=== PATIENT | female | born 1935 | race Caucasian/White ===

== ENCOUNTER 2018-09-13 22:03 | Emergency (ER) | payer MEDICARE ==
[2018-09-13] MEDS ORDERED: LIDOCAINE 1% INJ 10MG/ML (20 ML MDV) SQ ONE (23:52)
--- NOTE | 2018-09-14 00:39 | ED ---
General Adult HPI - General Chief complaint: Wound/Laceration Stated complaint: Fall, [place] Time Seen by Provider: 09/13/18 22:56 Source: patient Mode of arrival: ambulatory Limitations: no limitations - History of Present Illness Initial comments: Patient is an 82-year-old female presented to emergency department with a laceration on chin. Patient reports running when she tripped and fell forward causing a laceration on the mandible. Patient denies loss of consciousness at time of incident. Patient denies any fractured teeth. patient denies any numbness tingling or difficulty or pain closing the jaw. Patient denies nausea, vomiting, lightheadedness, chest pain, shortness of breath. Patient states her tetanus status is up-to-date. Patient denies taking any medication to lower the pain. - Related Data Home Medications Medication Instructions Recorded Confirmed No Known Home Medications 12/16/13 12/16/13 Allergies Allergy/AdvReac Type Severity Reaction Status Date / Time shellfish derived Allergy Rash/Hives Verified 09/13/18 22:12 Review of Systems ROS Statement: Those systems with pertinent positive or pertinent negative responses have been documented in the HPI. ROS Other: All systems not noted in ROS Statement are negative. Past Medical History Past Medical History: No Reported History History of Any Multi-Drug Resistant Organisms: None Reported Past Surgical History: Bowel Resection, Section, Tonsillectomy Past Psychological History: No Psychological Hx Reported Smoking Status: Never smoker Past Alcohol Use History: Occasional Past Drug Use History: None Reported General Exam Limitations: no limitations General appearance: alert, in no apparent distress Head exam: Present: normocephalic, normal inspection. Absent: atraumatic (1 cm laceration on the mental.) Eye exam: Present: normal appearance, PERRL, EOMI Pupils: Present: normal accommodation ENT exam: Present: normal exam, normal oropharynx (No teeth fractures) Neck exam: Present: normal inspection Respiratory exam: Present: normal lung sounds bilaterally Cardiovascular Exam: Present: regular rate, normal rhythm, normal heart sounds Extremities exam: Present: normal inspection, full ROM Back exam: Present: normal inspection, full ROM Neurological exam: Present: alert, oriented X3 Psychiatric exam: Present: normal affect, normal mood Skin exam: Present: warm, intact, normal color Course Vital Signs 09/13/18 22:09 Temperature 98.7 F Pulse Rate 80 Respiratory 18 Rate Blood Pressure 136/86 O2 Sat by Pulse 98 Oximetry Procedures - Laceration Laceration #1 Consent Obtained: verbal consent Indication: laceration Site: face Size (cm): 1 Description: linear Depth: simple, single layer Anesthetic Used: lidocaine 1% Anesthesia Technique: local infiltration Amount (mls): 10 Size of Sutures: 5-0 Number of Sutures: 3 Technique: simple, interrupted Patient Tolerated Procedure: well Medical Decision Making - Medical Decision Making Patient is a 83-year-old female presenting to emergency department with a laceration to the mental. I repaired the laceration with 3 sutures. Patient tolerated procedure well. Patient advised to follow-up with primary care. Patient advised to return to emergency department for suture removal in 3-5 days. Patient also advised to come sooner if symptoms worsen. Case discussed with physician. Disposition Clinical Impression: Laceration Disposition: HOME SELF-CARE Condition: Stable Instructions (If sedation given, give patient instructions): Laceration (DC) Additional Instructions: Please return to emergency department for suture removal in 3-5 days. Please follow with primary care. Is patient prescribed a controlled substance at d/c from ED?: No Referrals: Joesph Olsen MD [Primary Care Provider] - 1-2 days Time of Disposition: 00:38
[2018-09-14 00:53] VITALS: BP 141/93; PULSE 70; RESP 17; TEMP 98.4
== END 2018-09-14 00:53 | disposition home or self-care (01) ==
LOC: EC 22:03
DX: S01.81XA Laceration without foreign body of other part of head, initial encounter (principal); Z91.013 Allergy to seafood; W01.198A Fall on same level from slipping, tripping and stumbling with subsequent striking against other object, initial encounter
CPT/HCPCS: 99282; 12011; J2001

== ENCOUNTER → 2018-09-16 | Outpatient (CLI) | payer MEDICARE ==
--- NOTE | 2018-09-16 08:42 | MR ---
EXAMINATION TYPE: MR brain wo con DATE OF EXAM: 09/16/2018 COMPARISON: MRI brain August 25, 2009. HISTORY: TIA per order. Dizziness per patient with history of colon cancer. TECHNIQUE: Multiplanar, multisequence imaging of the brain and brainstem is performed without IV cont rast. FINDINGS: Diffusion weighted images demonstrate no evidence of a recent infarct or other diffusion abnormality. There is no worrisome extra-axial fluid collection. There is diffuse ventricular and sulcal prominenc e. There are multiple scattered foci T2 intensity throughout the deep and periventricular white matte r somewhat confluent in appearance at the periventricular level. Midline structures demonstrate normal morphology. The craniocervical junction appears within normal limits. Normal vascular flow voids are present. The visualized sinuses are clear and the globes are i ntact. Some increased fluid signal left mastoid air cells is redemonstrated. IMPRESSION: There is redemonstration of fairly moderate diffuse cerebral atrophy and chronic small ve ssel ischemic change without significant change from 2010 MRI. No evidence of a recent infarct.
== END ==
LOC: RADMRIMAIN 07:49
PROVIDERS: ATTEND Psychiatry & Neurology Neurology
DX: G31.9 Degenerative disease of nervous system, unspecified (principal); I67.82 Cerebral ischemia; Z91.013 Allergy to seafood
CPT/HCPCS: 70551

== ENCOUNTER → 2018-11-25 | Outpatient (CLI) | payer MEDICARE ==
--- NOTE | 2018-11-26 00:54 | MR ---
EXAMINATION TYPE: MR angio head wo con DATE OF EXAM: 11/25/2018 COMPARISON: None HISTORY: Dizziness, MR Brain on pacs TECHNIQUE: Time of flight images focusing on the [place] were performed without contrast. FINDINGS: There is arterial flow in the anterior middle and posterior cerebral arteries. There is art erial flow in the vertebrobasilar artery system. There is bilateral flow in the posterior communicati ng arteries. I see no evidence of intracranial aneurysm or neovascularity. There is focal stenosis of the proximal right posterior cerebral artery. This is estimated 75%. There is probably some stenosis also in the proximal left posterior cerebral artery.. There is arterial flow in the distal internal carotid arteries bilaterally. 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 No aneurysm.
== END | disposition home or self-care (01) ==
LOC: RADMRIMAIN 16:45
PROVIDERS: ATTEND Psychiatry & Neurology Neurology
DX: I66.23 Occlusion and stenosis of bilateral posterior cerebral arteries (principal); R26.9 Unspecified abnormalities of gait and mobility
CPT/HCPCS: 70544

== ENCOUNTER → 2018-11-26 | Outpatient (CLI) | payer MEDICARE ==
--- NOTE | 2018-12-31 10:18 | EM ---
EVENT MONITOR Patient was monitored between November 26 and December 17, 2018. The rhythm strip revealed a sinus mechanism with episode of sinus tachycardia with single PVCs and no evidence of malignant arrhythmia. MMCAROLINEL / YUMIKON: [id number] /
== END | disposition home or self-care (01) ==
LOC: RADECHMAIN 12:01
PROVIDERS: ATTEND Internal Medicine
DX: R68.89 Other general symptoms and signs (principal)
CPT/HCPCS: 93270